=== PATIENT | male | born 1960 | race Caucasian/White ===

== ENCOUNTER 2021-08-24 10:43 | Outpatient (REF) | payer BC, SELFPAY ==
[2021-08-24 14:52] LABS: ALT 32 U/L (16-63); AST 19 U/L (15-37); Albumin 4.2 g/dL (3.4-5.0); Alkaline Phosphatase 74 U/L (46-116); Anion Gap 8.7 mmol/L (3-11); BUN 10 mg/dL (7-18); Bilirubin, Total 0.4 mg/dL (0.2-1.0); CO2 29.3 mmol/L (21.0-32.0); Calculated LDL 132 mg/dL (<100); Chloride 100 mmol/L (98-107); Cholesterol 190 mg/dL (<200); Glucose 92 mg/dL (74-106); HDL Cholesterol 48 mg/dL (40-60); Potassium 4.2 mmol/L (3.5-5.1); Sodium 138 mmol/L (136-145); Triglyceride 54 mg/dL (<150)
== END 2021-08-24 10:44 | disposition home or self-care (01) ==
LOC: NCHCN 10:43
PROVIDERS: Family Medicine; Visit Provider Urology
DX: Z00.00 Encounter for general adult medical examination without abnormal findings (principal); I10 Essential (primary) hypertension; E78.5 Hyperlipidemia, unspecified
CPT/HCPCS: 80053; 80061

== ENCOUNTER 2022-08-21 13:00 | Outpatient (REF) | payer OTHER, SELFPAY ==
[2022-08-21 15:04] LABS: ALT 30 U/L (16-63); AST 22 U/L (15-37); Albumin 3.9 g/dL (3.4-5.0); Alkaline Phosphatase 58 U/L (46-116); Anion Gap 7.5 mmol/L (3-11); BUN 18 mg/dL (7-18); Bilirubin, Total 0.6 mg/dL (0.2-1.0); CO2 29.5 mmol/L (21.0-32.0); CREATININE 1.3 mg/dL (0.70-1.30); Calcium 9.3 mg/dL (8.5-10.1); Calculated LDL 131 mg/dL (<100); Chloride 100 mmol/L (98-107); Cholesterol 198 mg/dL (<200); Estimated GFR 61.35 (mL/min/1.73m2); Glucose 111 mg/dL (74-106); HDL Cholesterol 44 mg/dL (40-60); Potassium 4.5 mmol/L (3.5-5.1); Sodium 137 mmol/L (136-145); Total Protein 7.6 g/dL (6.4-8.2); Triglyceride 117 mg/dL (<150)
[2022-08-21 15:17] LABS: Vitamin D 25 Total 27.9 ng/mL (30-100)
[2022-08-21 23:12] LABS: PSA, Screening 6.1 ng/mL (<=4.5)
== END 2022-08-21 13:01 | disposition home or self-care (01) ==
LOC: NCHCN 13:00
PROVIDERS: PCP Family Medicine; Visit Provider Family Medicine
DX: I10 Essential (primary) hypertension (principal); E78.5 Hyperlipidemia, unspecified; R73.9 Hyperglycemia, unspecified; Z00.00 Encounter for general adult medical examination without abnormal findings; Z12.5 Encounter for screening for malignant neoplasm of prostate
CPT/HCPCS: 80053; 80061; 82306; 84153

== ENCOUNTER 2022-12-04 02:10 | Outpatient (CLI) | payer OTHER, SELFPAY ==
[2022-12-04 18:10] LABS: PSA, Diagnostic 5.8 ng/mL (<=4.5)
== END 2022-12-04 02:11 | disposition home or self-care (01) ==
LOC: LBO 02:10
PROVIDERS: PCP Family Medicine; Visit Provider Nurse Practitioner Gerontology
DX: Z80.42 Family history of malignant neoplasm of prostate (principal); R97.20 Elevated prostate specific antigen [PSA]
CPT/HCPCS: 36415; 84153

== ENCOUNTER 2023-06-19 02:22 | Outpatient (CLI) | payer OTHER, SELFPAY ==
[2023-06-19 18:23] LABS: PSA, Screening 9.6 ng/mL (<=4.5)
== END 2023-06-19 02:23 | disposition home or self-care (01) ==
LOC: LBO 02:22
PROVIDERS: PCP Family Medicine; Visit Provider Nurse Practitioner Gerontology
DX: R97.20 Elevated prostate specific antigen [PSA] (principal)
CPT/HCPCS: 36415; 84153

== ENCOUNTER 2023-06-26 12:37 | Outpatient (CLI) | payer OTHER, MEDICARE, SELFPAY ==
[2023-06-26 10:01] LABS: CREATININE 1.1 mg/dL (0.70-1.30)
== END 2023-06-26 12:38 | disposition home or self-care (01) ==
LOC: LBO 12:37
PROVIDERS: PCP Family Medicine; Visit Provider Nurse Practitioner Gerontology
DX: R97.20 Elevated prostate specific antigen [PSA] (principal)
CPT/HCPCS: 36415; 82565

== ENCOUNTER 2023-09-11 09:37 | Outpatient (REF) | payer OTHER, MEDICARE, SELFPAY ==
--- NOTE | 2023-09-11 09:20 | PROST_PTH ---
PATIENT: Zach Marino LOC: N U#:[id number] AGE/SX: 63/M ROOM: RE09/11/[address]: Michael Reece MD : 1960 BED: DIS: 09/11/2023 SPEC #: [id number] RECD: 09/11/23 12:30 STATUS: HERRERA RE #: [id number] JASON: 09/11/23 09:[address]: Michael Reece DEPT: Surgical Specimen RECD BY: Montse Ramirez ENTERED: 09/11/23 12:32 SP TYPE: PROST OTHR DR: Mattie Zarate Tissues: 1 - PROSTATE NEEDLE BIOPSY 2 - PROSTATE NEEDLE BIOPSY 3 - PROSTATE NEEDLE BIOPSY 4 - PROSTATE NEEDLE BIOPSY 5 - PROSTATE NEEDLE BIOPSY 6 - PROSTATE NEEDLE BIOPSY 7 - PROSTATE NEEDLE BIOPSY 8 - PROSTATE NEEDLE BIOPSY 9 - PROSTATE NEEDLE BIOPSY 10 - PROSTATE NEEDLE BIOPSY 11 - PROSTATE NEEDLE BIOPSY 12 - PROSTATE NEEDLE BIOPSY Procedures: GROSS AND MICRO LEVEL 4 Comments: [id number]
== END 2023-09-11 09:38 | disposition home or self-care (01) ==
LOC: LBN 09:37
PROVIDERS: PCP Family Medicine; Visit Provider Urology
DX: R97.20 Elevated prostate specific antigen [PSA] (principal); C61 Malignant neoplasm of prostate
CPT/HCPCS: 88305

== ENCOUNTER → 2023-10-10 02:54 | Outpatient (CLI) | payer OTHER, MEDICARE, SELFPAY ==
--- NOTE | 2023-10-10 07:30 | DI.NM_ITS ---
Exam(s) NM BONE SCAN WHOLE BODY GRP EXAM: NM BONE SCAN WHOLE BODY GRP CLINICAL HISTORY: baseline,PROSTATE CA,C61,?METS. TECHNIQUE: Injected Dose: 25 mCi Tc-99m MDP Delayed Images: 2-3 hours. COMPARISON: CT CT CHEST/ABD/PEL W from 10/10/2023 FINDINGS: Symmetric axial uptake. Bilateral renal excretion is identified. Areas of increased activity in the a nd anterior ribs correspond to nondisplaced fractures which are visible on CT. No additional abnorma l areas of labeling. IMPRESSION: 1. No evidence of metastatic disease. DATA REPOSITORY:
--- NOTE | 2023-10-10 07:36 | DI.CT_ITS ---
Exam(s) CT CHEST/ABD/PEL W EXAM: CT CHEST/ABD/PEL W CLINICAL HISTORY: PROSTATE CA, ? METS,c61. TECHNIQUE: Imaging Protocol: Axial computed tomography images with coronal and sagittal reformatted images were created and reviewed CONTRAST MATERIAL: Intravenous: Omnipaque 350 Contrast volume:100 ml Oral: yes / COMPARISON: US POCUS EXAM from 09/11/2023 FINDINGS: CHEST: Tracheobronchial tree: Patent where visualized. Pulmonary parenchyma: No consolidation or dominant measurable mass. Mild emphysematous changes. Ble b at the medial left upper lobe. Pleura: No effusion or pneumothorax. Lymph nodes: Within normal limits. Aorta: Thoracic portion non-dilated. Heart: Normal size. No pericardial effusion. Bones: Unremarkable for age. No lytic or blastic lesions.No compression fractures. Soft tissues: Unremarkable. ABDOMEN and PELVIS: Liver: Normal density. No measurable mass. Gallbladder and biliary tract: No evidence of stones or wall thickening. No biliary dilatation. Pancreas: Normal density, no abnormal calcifications or inflammatory process. Spleen: Normal. Kidneys: Normal size, contour and axis. No radiodense stones. No obstructive uropathy. No suspicious masses seen. Adrenal glands: No masses seen. Aorta: Abdominal portion non-dilated. Atherosclerotic changes with some irregular mural thrombus in t he midportion. Lymph nodes: Within normal limits. Soft tissues: Fatty containing left inguinal hernia. Bladder: Not well distended. Bowel: No obstruction or bowel wall thickening. Diverticulosis of the descending and sigmoid colon. Peritoneal cavity: No ascites. No focal collection. No mesenteric inflammatory response. Bones: Degenerative changes at L5-S1. No lytic or blastic lesions are identified. Reproductive organs: Prostate appears normal in size. No discrete visible mass. Calcifications pres ent. IMPRESSION: No evidence of metastatic disease abnormality in the chest, abdomen or pelvis.. RADIATION DOSE DELIVERED: Total DLP DATA REPOSITORY: All CT scans at this facility are submitted to the National Radiology Data Registry (NRDR) Dose Index Registry (DIR) with the [employer] (A[employer]). RADIATION OPTIMIZATION: All CT scans at this facility use at least one of these dose optimization te chniques: automated exposure control; mA and/or kV adjustment per patient size (includes targeted exa ms where dose is matched to clinical indication); or iterative reconstruction.
[2023-10-10] MEDS: Barium Sulfate 2% W/V-Berry Smoothie 450 ML BTL PO (09:20)
[2023-10-10 09:36] LABS: Estimated GFR 83.52 (mL/min/1.73m2)
[2023-10-10] MEDS: Normal Saline - Diluent 50 ML VIAL IJ (10:57)
[2023-10-10] MEDS: Omnipaque 350 MG/ML 500 ML BTL-Imaging package IJ (11:01)
== END ==
PROVIDERS: PCP Family Medicine; Visit Provider Urology
DX: C61 Malignant neoplasm of prostate (principal); K40.90 Unilateral inguinal hernia, without obstruction or gangrene, not specified as recurrent; J98.4 Other disorders of lung; Z12.89 Encounter for screening for malignant neoplasm of other sites
CPT/HCPCS: 74177; 78306; 71260; 82565

== ENCOUNTER 2024-06-16 04:45 | Outpatient (CLI) | payer OTHER, MEDICARE, SELFPAY ==
[2024-06-18 14:15] LABS: PSA, Ultrasensitive 0.23 ng/mL (<= 4.5)
[2024-06-19 15:34] LABS: Testosterone, Total 31 ng/dL (240-950)
== END 2024-06-16 04:46 | disposition home or self-care (01) ==
LOC: LBO 04:46
PROVIDERS: PCP Family Medicine; Visit Provider Radiology Radiation Oncology
DX: C61 Malignant neoplasm of prostate (principal)
CPT/HCPCS: 36415; 84153; 84403

== ENCOUNTER 2024-09-08 02:58 | Outpatient (CLI) | payer OTHER, MEDICARE, SELFPAY ==
[2024-09-08 11:47] LABS: Abs Immature Grans 0.02 10^3/uL (0.0-0.06); Absolute Basophil Count 0.04 10^3/uL (0.0-0.2); Absolute Lymphocyte Count 0.89 10^3/uL (1.2-3.4); Absolute Monocyte Count 0.52 10^3/uL (0.1-0.8); Basophils % 0.9 %; Eosinophils % 6.7 %; HCT 36.1 % (40.0-50.0); HGB 12.7 g/dL (13.5-17.5); Immature Grans % 0.4 %; Lymphocytes % 19.9 %; MCH 35.4 pg (27.0-33.0); MCHC 35.2 % (32.0-36.0); MCV 101 fL (80-95); MPV 8.8 fL (8.0-11.0); Monocytes % 11.6 %; Neutrophils % 60.5 %; Platelet Count 234 10^3/uL (130-400); RBC 3.59 10^6/uL (4.36-5.78); RDW 11.9 % (11.8-14.1); RDW-SD 43.4 fL; WBC 4.47 10^3/uL (4.4-10.8)
[2024-09-08 11:58] LABS: ALT 27 U/L (16-63); AST 22 U/L (15-37); Albumin 3.7 g/dL (3.4-5.0); Alkaline Phosphatase 71 U/L (46-116); Anion Gap 4.8 mmol/L (3-11); BUN 11 mg/dL (7-18); Bilirubin, Total 0.31 mg/dL (0.2-1.0); CO2 31.2 mmol/L (21.0-32.0); CREATININE 0.8 mg/dL (0.70-1.30); Calcium 9.1 mg/dL (8.5-10.1); Chloride 99 mmol/L (98-107); Estimated GFR 97.61 (mL/min/1.73m2); Glucose 91 mg/dL (74-106); Sodium 135 mmol/L (136-145)
[2024-09-08 12:43] LABS: Calculated LDL 106 mg/dL (<100); Cholesterol 189 mg/dL (<200); HDL Cholesterol 68 mg/dL (40-60); Triglyceride 79 mg/dL (<150); Vitamin D 25 Total 54.5 ng/mL (30-100)
[2024-09-11 13:12] LABS: Testosterone, Total 26 ng/dL (240-950)
== END 2024-09-08 02:59 | disposition home or self-care (01) ==
LOC: LBO 02:58
PROVIDERS: PCP Family Medicine; Visit Provider Colon & Rectal Surgery
DX: E78.5 Hyperlipidemia, unspecified (principal); I10 Essential (primary) hypertension; C61 Malignant neoplasm of prostate; Z79.818 Long term (current) use of other agents affecting estrogen receptors and estrogen levels
CPT/HCPCS: 36415; 80053; 80061; 82306; 84153; 84403; 85025

== ENCOUNTER 2024-10-03 22:48 | Outpatient (REF) | payer OTHER, MEDICARE, SELFPAY ==
[2024-10-03 22:04] LABS: COMMENT (LAB VIEW ONLY) 96.47 mg/dL; Microalb ug/mg Crea 8.2 ug/mg Cr
== END 2024-10-03 22:49 | disposition home or self-care (01) ==
LOC: NCHCN 22:48
PROVIDERS: PCP Family Medicine; Visit Provider Family Medicine
DX: I10 Essential (primary) hypertension (principal)
CPT/HCPCS: 82043; 82570

== ENCOUNTER 2025-01-08 00:31 | Outpatient (CLI) | payer MEDICARE, SELFPAY ==
--- NOTE | 2025-01-08 | DI.DEXA_ITS ---
Exam(s) XR DEXA BONE DENSITY W/WO CHRISTOPHER EXAM: XR DEXA BONE DENSITY W/WO CHRISTOPHER CLINICAL HISTORY: Androgen-deprivation therapy, Z79.818; malignant neoplasm of prostate, at TECHNIQUE: [employer] Horizon C densitometer analysis of left hip, lumbar spine and right forearm. Lateral survey image of the thoracic and lumbar spine. COMPARISON: No exams were available for comparison FINDINGS: Lateral view of the thoracic and lumbar spine shows no evidence of compression fractures. Bone mineral density measurements of the lumbar spine correspond to a total T- score of -1.0, at the lower limit of normal. Bone mineral density measurements of the left hip correspond to a total T-score of -0.3. The femoral neck T-score is -0.4, in the normal range. Theright forearm bone mineral density measurements correspond to a T-score of the distal 3rd of 0.1, in the normal range . IMPRESSION: Normal bone mineral density of the forearm and hip. Borderline osteopenia of the lumbar spine.
== END 2025-01-08 00:51 ==
PROVIDERS: PCP Family Medicine; Visit Provider Physician Assistant
DX: Z13.820 Encounter for screening for osteoporosis (principal); Z79.818 Long term (current) use of other agents affecting estrogen receptors and estrogen levels
CPT/HCPCS: 77080

== ENCOUNTER → 2025-01-22 09:02 | Outpatient (BNVA) | payer MEDICARE, SELFPAY | PROVIDERS: PCP Family Medicine; Visit Provider Nurse Practitioner Gerontology | DX: C61 Malignant neoplasm of prostate (principal); R39.9 Unspecified symptoms and signs involving the genitourinary system | CPT/HCPCS: 99213; 51798 ==

== ENCOUNTER 2025-01-22 09:47 | Outpatient (CLI) | payer MEDICARE, SELFPAY ==
[2025-01-22 09:54] LABS: Abs Immature Grans 0.03 10^3/uL (0.0-0.06); HCT 36.8 % (40.0-50.0); HGB 13.1 g/dL (13.5-17.5); Immature Grans % 0.6 %; MCH 34.6 pg (27.0-33.0); MCHC 35.6 % (32.0-36.0); MCV 97 fL (80-95); MPV 8.4 fL (8.0-11.0); Platelet Count 235 10^3/uL (130-400); RBC 3.79 10^6/uL (4.36-5.78); RDW 13.3 % (11.8-14.1); RDW-SD 47.6 fL; WBC 5.31 10^3/uL (4.4-10.8)
[2025-01-22 11:04] LABS: ALT 36 U/L (16-63); AST 35 U/L (15-37); Albumin 4.2 g/dL (3.4-5.0); Alkaline Phosphatase 77 U/L (46-116); Anion Gap 10.4 mmol/L (3-11); BUN 23 mg/dL (7-18); Bilirubin, Total 0.4 mg/dL (0.2-1.0); CO2 28.6 mmol/L (21.0-32.0); Calcium 9.6 mg/dL (8.5-10.1); Chloride 93 mmol/L (98-107); Estimated GFR 94.19 (mL/min/1.73m2); Glucose 96 mg/dL (74-106); Potassium 3.9 mmol/L (3.5-5.1); Sodium 132 mmol/L (136-145); Total Protein 8.4 g/dL (6.4-8.2)
== END 2025-01-22 09:48 | disposition home or self-care (01) ==
LOC: LBO 09:47
PROVIDERS: PCP Family Medicine; Visit Provider Physician Assistant
DX: Z79.818 Long term (current) use of other agents affecting estrogen receptors and estrogen levels (principal); C61 Malignant neoplasm of prostate
CPT/HCPCS: 36415; 51798; 80053; 84153; 84403; 99213; 85025

== ENCOUNTER 2025-05-15 03:47 | Outpatient (CLI) | payer MEDICARE, SELFPAY | END 2025-05-15 03:48 | disposition home or self-care (01) | LOC: LBO 03:47 | PROVIDERS: PCP Family Medicine; Visit Provider Physician Assistant | DX: C61 Malignant neoplasm of prostate (principal) | CPT/HCPCS: 36415; 84153; 84403 ==

== ENCOUNTER → 2025-05-21 14:25 | Outpatient (BNVA) | payer MEDICARE, SELFPAY | PROVIDERS: PCP Family Medicine; Referring Provider Family Medicine; Visit Provider Nurse Practitioner Gerontology | DX: C61 Malignant neoplasm of prostate (principal); R39.9 Unspecified symptoms and signs involving the genitourinary system | CPT/HCPCS: 99213; 51798 ==